=== PATIENT | male | born 2000 | race African-American/Black ===

== ENCOUNTER 2021-10-03 21:39 | Emergency (ER) | payer SELFPAY ==
[~2021-10-03] VITALS: Ht 167.6 cm; Wt 57.0 kg
[2021-10-03 22:02] VITALS: BP 155/77
== END 2021-10-03 22:19 | disposition left against medical advice (07) ==
LOC: ER 21:39
DX: Z53.21 Procedure and treatment not carried out due to patient leaving prior to being seen by health care provider (principal)

== ENCOUNTER 2022-10-09 01:28 | Emergency (ER) | payer MEDICAID ==
[~2022-10-09] VITALS: Ht 170.2 cm; Wt 60.0 kg
[2022-10-09 02:43] VITALS: BP 132/68
[2022-10-09] MEDS ORDERED: HYDROCODONE/ACETAMINOPHEN 5/325MG TABLET PO ONE (02:45)
== END 2022-10-09 02:55 | disposition home or self-care (01) ==
LOC: ER 01:28
DX: K02.9 Dental caries, unspecified (principal)
CPT/HCPCS: 99283